=== PATIENT | female | born 1945 ===

== ENCOUNTER 2019-07-11 01:27 | Observation (INO) ==
[2019-07-11 02:55] LABS: Hemoglobin 15.6 g/dL (11.5-15.4); Mean Corpuscular Volume 97.5 fL (83.0-100.0); White Blood Count 9.6 K/mcL (4.3-11.1)
[2019-07-11 02:57] LABS: Basophils # 0.1 K/mcL (0.0-0.2); Basophils % 0.5 %; Eosinophils # 0.1 K/mcL (0.0-0.6); Eosinophils % 1.5 %; Hematocrit 46.8 % (35.3-44.9); Immature Granulocytes % 0.5 % (0-4); Immature Platelets 15.3 % (1.1-6.1); Lymphocytes # 1.8 K/mcL (0.6-4.6); Lymphocytes % 18.8 %; Mean Corpuscular HGB Conc 33.3 g/dL (31.6-35.5); Mean Corpuscular Hemoglobin 32.5 pg (28.0-33.3); Mean Platelet Volume 13.8 fL (9.4-12.4); Monocytes # 0.6 K/mcL (0.0-1.3); Monocytes % 5.9 %; Platelet Count 141 K/mcL (140-400); Red Cell Distribution Width 13.6 % (11.5-14.5); Segmented Neutrophils % 72.8 %
[2019-07-11 03:03] LABS: Acetaminophen < 10 mcg/mL (10-20); BUN/Creatinine Ratio 22 (6-26); Blood Urea Nitrogen 28 mg/dL (8-23); Calcium 10.3 mg/dL (8.6-10.3); Carbon Dioxide 17 mEq/L (23-29); Chloride 107 mEq/L (98-107); Ethanol < 10 mg/dL (Less than 10); Glucose 121 mg/dL (70-105); Osmolality,Calculated 293 (280-300); Potassium 3.5 mEq/L (3.5-5.1); Salicylate < 2.5 mg/dL (15.0-30.0); Sodium 138 mEq/L (136-145); eGFR For African Americans 50 (> 60); eGFR For Non-African Americans 41 (> 60)
[2019-07-11 03:08] LABS: Bilirubin,Urine Moderate (Negative); Blood,Urine Negative (Negative); Clarity,Urine Cloudy (Clear); Color,Urine Dark Yellow (Yellow); Glucose,Urine (UA) Normal (Normal); Ketones,Urine 40 mg/dL (Negative); Leukocyte Esterase,Urine Negative (Negative); Nitrite,Urine Negative (Negative); Protein,Urine Trace mg/dL (Neg-Trace); Specific Gravity,Urine 1.017 (1.010-1.025); Urobilinogen,Urine Normal (Normal)
[2019-07-11 03:09] LABS: Bacteria,Urine Moderate per hpf (None-Few); Hyaline Casts,Urine Few per lpf (None-Few); Squamous Epithelial Cell,Urine Many per lpf (None-Few); WBC,Urine 15-30 per hpf (0-3)
[2019-07-11 03:10] LABS: Amphetamine Screen,Urine Negative ng/mL (Cutoff=1000); Barbiturate Screen,Urine Negative ng/mL (Cutoff=200); Benzodiazepines Screen,Urine Negative ng/mL (Cutoff=200); Cannabinoid Screen,Urine Negative ng/mL (Cutoff = 50); Cocaine Screen,Urine Negative ng/mL (Cutoff= 300); Opiate Screen,Urine Negative ng/mL (Cutoff=300); Phencyclidine Screen,Urine Negative ng/mL (Cutoff=25)
[2019-07-11 03:12] LABS: Platelet Estimate Normal (Normal)
[2019-07-11] MEDS ORDERED: 0.9 % Sodium Chloride 1,000 ML IVC ONE (03:14)
[2019-07-11 03:36] LABS: Alanine Aminotransferase 33 Units/L (7-52); Albumin 4.2 g/dL (3.5-5.7); Albumin/Globulin Ratio 1.8 (1.1-2.2); Alkaline Phosphatase 81 Units/L (34-104); Aspartate Amino Transferase 31 Units/L (13-39); Bilirubin,Direct 0.4 mg/dL (0.0-0.2); Bilirubin,Indirect 2.7 mg/dL (0.0-1.0); Bilirubin,Total 3.1 mg/dL (0.3-1.0); Globulin 2.4 g/dL (2.4-3.5); Total Protein 6.6 g/dL (6.4-8.9)
[2019-07-11] MEDS ORDERED: 0.9 % Sodium Chloride 1,000 ML IVC STA (03:40)
[2019-07-11 04:10] LABS: Prothrombin Time 11.7 Seconds (9.4-12.1)
[2019-07-11] MEDS ORDERED: Naloxone 0.4 MG/ML INJ IVP PRN (04:29)
[2019-07-11] MEDS ORDERED: *HR* Promethazine 25 MG/ML VIAL IVP PRN (04:29)
[2019-07-11] MEDS ORDERED: 0.9 % Sodium Chloride 1,000 ML IVC SCH (04:30)
[2019-07-11 05:10] LABS: Chol/HDL Ratio 5.7 (0-4.9); Cholesterol 149 mg/dL (< 200); HDL Cholesterol 26 mg/dL (40-59); LDL Cholesterol,Calculated 95 mg/dL (0-99); Magnesium 2.1 mg/dL (1.6-2.6); Phosphorous 2.6 mg/dL (2.7-4.5); Triglycerides 142 mg/dL (< 150)
[2019-07-11 08:36] LABS: Folate 14.2 ng/mL (3.0-16.0)
[2019-07-11 08:41] LABS: Hepatitis B Surface Antigen Nonreactive (Nonreactive)
[2019-07-11 09:09] LABS: Hepatitis B Core IgM Nonreactive (Nonreactive)
[2019-07-11 09:10] LABS: Hepatitis C Virus Antibody Nonreactive (Nonreactive)
[2019-07-11 09:11] LABS: Hepatitis A Antibody IgM Nonreactive (Nonreactive)
[2019-07-11 15:19] VITALS: BP 119/67
== END 2019-07-11 17:06 | disposition home or self-care (01) ==
LOC: EMEROOARM 01:27 → 3ANU 01:27
PROVIDERS: ADMIT Internal Medicine; ATTEND Internal Medicine

== ENCOUNTER 2019-07-11 16:42 | Inpatient (IN) ==
[2019-07-11] MEDS ORDERED: *HR* LORazepam 2 MG/ML VIAL IM PRN (17:26)
[2019-07-11] MEDS ORDERED: Acetaminophen 325 MG TABLET PO PRN (17:26)
[2019-07-11] MEDS ORDERED: haloperidoL 5 MG TABLET PO PRN (17:26)
[2019-07-11] MEDS ORDERED: *HR* LORazepam 1 MG TABLET PO PRN (17:26)
[2019-07-11] MEDS ORDERED: Haloperidol Lactate 5 MG/ML VIAL IM PRN (17:26)
[2019-07-11] MEDS ORDERED: Mag Hydrox/Al Hydrox/Simeth 30 ML UDC PO PRN (17:26)
[2019-07-11] MEDS ORDERED: MOM Conc 10 ML UD.LIQ PO PRN (17:26)
[2019-07-11] MEDS ORDERED: Ergocalciferol (VIT D2) 50,000 UNIT (1.25MG) CAP PO SCH (17:30)
[2019-07-12] MEDS: allopurinoL 100 MG TABLET PO SCH (08:58)
[2019-07-12] MEDS: Lurasidone 20 MG TABLET PO SCH (16:55)
[2019-07-13 08:50] LABS: Albumin 3.6 g/dL (3.5-5.7); Albumin/Globulin Ratio 1.8 (1.1-2.2); Bilirubin,Total 2.4 mg/dL (0.3-1.0); Calcium 9.7 mg/dL (8.6-10.3); Potassium 3.6 mEq/L (3.5-5.1); Total Protein 5.6 g/dL (6.4-8.9)
[2019-07-13 09:04] LABS: Thyroid Stimulating Hormone 1.001 mcIU/mL (0.340-5.600)
[2019-07-13 09:17] LABS: Estimated Average Glucose 97 mg/dl
[2019-07-13] MEDS: allopurinoL 100 MG TABLET PO SCH (10:36)
[2019-07-13] MEDS: Lurasidone 20 MG TABLET PO SCH (19:58)
[2019-07-14] MEDS: Lithium Carbonate 300 MG CAPSULE PO SCH ×2 (08:59→20:34)
[2019-07-14] MEDS: allopurinoL 100 MG TABLET PO SCH (08:59)
[2019-07-14] MEDS: Lurasidone 20 MG TABLET PO SCH (16:49)
[2019-07-14] MEDS: traZODone 50 MG TABLET PO PRN (20:34)
[2019-07-14] MEDS: hydrOXYzine pamoate 25 MG CAPSULE PO PRN (20:34)
[2019-07-15] MEDS: Lithium Carbonate 300 MG CAPSULE PO SCH ×2 (08:19→20:24)
[2019-07-15] MEDS: allopurinoL 100 MG TABLET PO SCH (08:19)
[2019-07-15] MEDS: Lurasidone 20 MG TABLET PO SCH (16:53)
[2019-07-15] MEDS: traZODone 50 MG TABLET PO PRN (20:24)
[2019-07-15] MEDS: hydrOXYzine pamoate 25 MG CAPSULE PO PRN (20:24)
[2019-07-16] MEDS: allopurinoL 100 MG TABLET PO SCH (08:53)
[2019-07-16] MEDS: Lithium Carbonate 300 MG CAPSULE PO SCH (08:53)
[2019-07-16 08:59] VITALS: BP 100/61
== END 2019-07-16 14:30 | disposition home or self-care (01) | DRG 885 ==
LOC: 1ANU 16:42
PROVIDERS: ADMIT Psychiatry & Neurology Psychiatry; ATTEND Psychiatry & Neurology Psychiatry

== ENCOUNTER 2019-07-28 14:43 | Inpatient (IN) ==
[2019-07-28] MEDS ORDERED: MOM Conc 10 ML UD.LIQ PO PRN (15:58)
[2019-07-28] MEDS ORDERED: Mag Hydrox/Al Hydrox/Simeth 30 ML UDC PO PRN (15:58)
[2019-07-28] MEDS ORDERED: traZODone 50 MG TABLET PO PRN (15:58)
[2019-07-28] MEDS ORDERED: *HR* LORazepam 2 MG/ML VIAL IM PRN (15:58)
[2019-07-28] MEDS ORDERED: hydrOXYzine pamoate 25 MG CAPSULE PO PRN (15:58)
[2019-07-28] MEDS ORDERED: Ibuprofen 400 MG TABLET PO PRN (15:58)
[2019-07-28] MEDS ORDERED: haloperidoL 5 MG TABLET PO PRN (15:58)
[2019-07-28] MEDS ORDERED: Haloperidol Lactate 5 MG/ML VIAL IM PRN (15:58)
[2019-07-28] MEDS ORDERED: *HR* LORazepam 1 MG TABLET PO PRN (15:58)
[2019-07-29] MEDS: allopurinoL 100 MG TABLET PO SCH (11:25)
[2019-07-29] MEDS: Lurasidone 20 MG TABLET PO SCH (11:25)
[2019-07-30] MEDS: Lurasidone 20 MG TABLET PO SCH (10:01)
[2019-07-30] MEDS: allopurinoL 100 MG TABLET PO SCH (10:01)
[2019-07-31] MEDS: allopurinoL 100 MG TABLET PO SCH (09:33)
[2019-07-31] MEDS: Lurasidone 20 MG TABLET PO SCH (09:33)
[2019-08-01] MEDS: allopurinoL 100 MG TABLET PO SCH (08:04)
[2019-08-01 09:15] VITALS: BP 129/79
== END 2019-08-01 14:13 | disposition home or self-care (01) | DRG 885 ==
LOC: 1ANU 14:43
PROVIDERS: ADMIT Psychiatry & Neurology Psychiatry; ATTEND Psychiatry & Neurology Psychiatry